=== PATIENT | female | born 1950 | race Asian ===

== ENCOUNTER → 2023-04-07 13:01 | Outpatient (REF) | payer MEDICARE, SELFPAY ==
[2023-04-07 11:25] LABS: % Immature Granulocytes 0.2 % (0-0.5); % Lymphocytes 23.5 % (20.5-51.1); % Monocytes 8.3 % (1.7-9.3); Absolute Basophils 0.1 10^3/uL (0-0.2); Absolute Eosinophils 0.2 10^3/uL (0-0.7); Absolute Lymphocytes 1.2 10^3/uL (1.2-3.4); Absolute Monocytes 0.4 10^3/uL (0.1-0.6); Absolute Neutrophils 3.1 10^3/uL (1.4-6.5); Hematocrit 37.6 % (37.0-47.0); Hemoglobin 12.6 g/dL (12.0-16.0); Mean Corp Hgb Conc. 33.5 g/dL (33.0-37.0); Mean Corpuscular Volume 74.6 fL (81.0-99.0); Mean Platelet Volume 11.6 fL (7.4-10.4); Platelet Count 241 10^3/uL (130-400); Red Blood Cell Count 5.04 10^6/uL (4.20-5.40); Red Cell Dist. Width 14.7 % (11.5-14.5); White Blood Cell Count 4.9 10^3/uL (4.8-10.8)
[2023-04-07 12:18] LABS: ALT (SGPT) 77 U/L (0-35); AST (SGOT) 71 U/L (14-36); Albumin 4.3 g/dl (3.5-5.0); Alkaline Phosphatase 55 U/L (38-126); Blood Urea Nitrogen 19 mg/dl (7-17); Calcium 9.2 mg/dl (8.4-10.2); Carbon Dioxide 27 mmol/L (22-30); Chloride 102 mmol/L (98-107); Glucose 219 mg/dl (70-99); Potassium 4.7 mmol/L (3.5-5.1); Sodium 134 mmol/L (135-145); Total Bilirubin 0.5 mg/dl (0.2-1.3); Total Protein 7.5 g/dl (6.3-8.2); eGFR > 60.00
== END ==
LOC: OIDL 13:01
PROVIDERS: ATTENDING PHYSICIAN Internal Medicine Hematology & Oncology
DX: C7A.010 Malignant carcinoid tumor of the duodenum (principal)
CPT/HCPCS: 80053; 85025

== ENCOUNTER → 2023-06-01 09:59 | Outpatient (REF) | payer MEDICARE, SELFPAY ==
[2023-06-01 10:21] LABS: % Basophils 0.8 % (0-2); % Eosinophils 2.3 % (0-6); % Lymphocytes 34.2 % (20.5-51.1); % Monocytes 8.9 % (1.7-9.3); % Neutrophils 53.8 % (42.2-75.2); Absolute Eosinophils 0.1 10^3/uL (0-0.7); Absolute Lymphocytes 1.7 10^3/uL (1.2-3.4); Absolute Monocytes 0.4 10^3/uL (0.1-0.6); Absolute Neutrophils 2.6 10^3/uL (1.4-6.5); Hematocrit 33.6 % (37.0-47.0); Hemoglobin 11.2 g/dL (12.0-16.0); Mean Corp Hgb Conc. 33.3 g/dL (33.0-37.0); Mean Corpuscular Hgb 25.1 pg (27.0-31.0); Mean Corpuscular Volume 75.3 fL (81.0-99.0); Mean Platelet Volume 11.8 fL (7.4-10.4); Platelet Count 219 10^3/uL (130-400); Red Blood Cell Count 4.46 10^6/uL (4.20-5.40); Red Cell Dist. Width 14.1 % (11.5-14.5); White Blood Cell Count 4.8 10^3/uL (4.8-10.8)
[2023-06-01 11:05] LABS: ALT (SGPT) 102 U/L (0-35); AST (SGOT) 93 U/L (14-36); Albumin 3.9 g/dl (3.5-5.0); Alkaline Phosphatase 51 U/L (38-126); Blood Urea Nitrogen 22 mg/dl (7-17); Calcium 9.1 mg/dl (8.4-10.2); Carbon Dioxide 22 mmol/L (22-30); Chloride 106 mmol/L (98-107); Glucose 258 mg/dl (70-99); Potassium 3.9 mmol/L (3.5-5.1); Sodium 135 mmol/L (135-145); Total Bilirubin 0.3 mg/dl (0.2-1.3); Total Protein 6.8 g/dl (6.3-8.2); eGFR > 60.00
== END ==
LOC: OIDL 09:59
PROVIDERS: ATTENDING PHYSICIAN Internal Medicine Hematology & Oncology
DX: C7A.010 Malignant carcinoid tumor of the duodenum (principal)
CPT/HCPCS: 80053; 85025

== ENCOUNTER → 2023-06-28 07:10 | Outpatient (REF) | payer MEDICARE, SELFPAY | LOC: HWRAD 07:10 | PROVIDERS: ATTENDING PHYSICIAN Internal Medicine Hematology & Oncology; FAMILY PHYSICIAN Internal Medicine | DX: C7A.010 Malignant carcinoid tumor of the duodenum (principal) | CPT/HCPCS: 76700 ==

== ENCOUNTER → 2023-06-30 14:17 | Outpatient (REF) | payer MEDICARE, SELFPAY ==
[2023-06-30 13:06] LABS: % Basophils 0.7 % (0-2); % Eosinophils 2.8 % (0-6); % Immature Granulocytes 0.7 % (0-0.5); % Lymphocytes 35.1 % (20.5-51.1); % Monocytes 9.6 % (1.7-9.3); % Neutrophils 51.1 % (42.2-75.2); Absolute Eosinophils 0.1 10^3/uL (0-0.7); Absolute Lymphocytes 1.5 10^3/uL (1.2-3.4); Absolute Monocytes 0.4 10^3/uL (0.1-0.6); Absolute Neutrophils 2.2 10^3/uL (1.4-6.5); Hematocrit 34.4 % (37.0-47.0); Hemoglobin 11.7 g/dL (12.0-16.0); Mean Corpuscular Hgb 25.3 pg (27.0-31.0); Mean Corpuscular Volume 74.3 fL (81.0-99.0); Mean Platelet Volume 11.4 fL (7.4-10.4); Platelet Count 208 10^3/uL (130-400); Red Blood Cell Count 4.63 10^6/uL (4.20-5.40); White Blood Cell Count 4.3 10^3/uL (4.8-10.8)
[2023-06-30 15:02] LABS: ALT (SGPT) 83 U/L (0-35); AST (SGOT) 79 U/L (14-36); Alkaline Phosphatase 55 U/L (38-126); Blood Urea Nitrogen 17 mg/dl (7-17); Calcium 9.1 mg/dl (8.4-10.2); Carbon Dioxide 23 mmol/L (22-30); Chloride 105 mmol/L (98-107); Glucose 269 mg/dl (70-99); Potassium 4.5 mmol/L (3.5-5.1); Sodium 133 mmol/L (135-145); Total Bilirubin 0.3 mg/dl (0.2-1.3); eGFR > 60.00
== END ==
LOC: OIDL 14:17
PROVIDERS: ATTENDING PHYSICIAN Internal Medicine Hematology & Oncology
DX: C7A.010 Malignant carcinoid tumor of the duodenum (principal)
CPT/HCPCS: 80053; 85025

== ENCOUNTER → 2023-08-04 09:58 | Outpatient (REF) | payer MEDICARE, SELFPAY ==
[2023-08-04 09:46] LABS: % Basophils 0.7 % (0-2); % Eosinophils 1.5 % (0-6); % Immature Granulocytes 0.2 % (0-0.5); % Lymphocytes 32.7 % (20.5-51.1); % Monocytes 10.9 % (1.7-9.3); Absolute Eosinophils 0.1 10^3/uL (0-0.7); Absolute Lymphocytes 1.9 10^3/uL (1.2-3.4); Absolute Monocytes 0.6 10^3/uL (0.1-0.6); Absolute Neutrophils 3.2 10^3/uL (1.4-6.5); Hematocrit 34.2 % (37.0-47.0); Hemoglobin 11.5 g/dL (12.0-16.0); Mean Corp Hgb Conc. 33.6 g/dL (33.0-37.0); Mean Corpuscular Hgb 25.3 pg (27.0-31.0); Mean Corpuscular Volume 75.3 fL (81.0-99.0); Mean Platelet Volume 10.8 fL (7.4-10.4); Platelet Count 240 10^3/uL (130-400); Red Blood Cell Count 4.54 10^6/uL (4.20-5.40); Red Cell Dist. Width 14.3 % (11.5-14.5); White Blood Cell Count 5.9 10^3/uL (4.8-10.8)
[2023-08-04 10:10] LABS: ALT (SGPT) 79 U/L (0-35); AST (SGOT) 67 U/L (14-36); Albumin 4.1 g/dl (3.5-5.0); Alkaline Phosphatase 49 U/L (38-126); Blood Urea Nitrogen 21 mg/dl (7-17); Calcium 9.3 mg/dl (8.4-10.2); Carbon Dioxide 25 mmol/L (22-30); Chloride 105 mmol/L (98-107); Glucose 226 mg/dl (70-99); Potassium 4.3 mmol/L (3.5-5.1); Sodium 140 mmol/L (135-145); Total Bilirubin 0.3 mg/dl (0.2-1.3); Total Protein 7.1 g/dl (6.3-8.2); eGFR > 60.00
== END ==
LOC: OIDL 09:58
PROVIDERS: ATTENDING PHYSICIAN Internal Medicine Hematology & Oncology
DX: C7A.010 Malignant carcinoid tumor of the duodenum (principal)
CPT/HCPCS: 80053; 85025

== ENCOUNTER → 2023-09-02 14:30 | Outpatient (REF) | payer MEDICARE, SELFPAY ==
[2023-09-02 10:07] LABS: % Basophils 1.1 % (0-2); % Eosinophils 2.1 % (0-6); % Immature Granulocytes 0.2 % (0-0.5); % Lymphocytes 40.8 % (20.5-51.1); % Monocytes 9.7 % (1.7-9.3); % Neutrophils 46.1 % (42.2-75.2); Absolute Basophils 0.1 10^3/uL (0-0.2); Absolute Eosinophils 0.1 10^3/uL (0-0.7); Absolute Lymphocytes 1.9 10^3/uL (1.2-3.4); Absolute Monocytes 0.5 10^3/uL (0.1-0.6); Absolute Neutrophils 2.2 10^3/uL (1.4-6.5); Hematocrit 34.2 % (37.0-47.0); Mean Corp Hgb Conc. 32.2 g/dL (33.0-37.0); Mean Corpuscular Hgb 24.2 pg (27.0-31.0); Mean Corpuscular Volume 75.3 fL (81.0-99.0); Mean Platelet Volume 11.5 fL (7.4-10.4); Nucleated Red Blood Cells % 0 %; Platelet Count 218 10^3/uL (130-400); Red Blood Cell Count 4.54 10^6/uL (4.20-5.40); Red Cell Dist. Width 14.1 % (11.5-14.5); White Blood Cell Count 4.8 10^3/uL (4.8-10.8)
[2023-09-02 10:35] LABS: ALT (SGPT) 66 U/L (0-35); AST (SGOT) 68 U/L (14-36); Albumin 4.3 g/dl (3.5-5.0); Alkaline Phosphatase 47 U/L (38-126); Blood Urea Nitrogen 20 mg/dl (7-17); Calcium 9.4 mg/dl (8.4-10.2); Carbon Dioxide 24 mmol/L (22-30); Chloride 105 mmol/L (98-107); Glucose 157 mg/dl (70-99); Potassium 3.9 mmol/L (3.5-5.1); Sodium 138 mmol/L (135-145); Total Bilirubin 0.4 mg/dl (0.2-1.3); Total Protein 6.9 g/dl (6.3-8.2); eGFR > 60.00
== END ==
LOC: OIDL 14:30
PROVIDERS: ATTENDING PHYSICIAN Internal Medicine Hematology & Oncology
DX: C7A.010 Malignant carcinoid tumor of the duodenum (principal)
CPT/HCPCS: 80053; 85025

== ENCOUNTER → 2023-09-29 14:59 | Outpatient (REF) | payer MEDICARE, SELFPAY ==
[2023-09-29 09:38] LABS: % Basophils 0.8 % (0-2); % Eosinophils 2.9 % (0-6); % Lymphocytes 33.1 % (20.5-51.1); % Monocytes 9.7 % (1.7-9.3); % Neutrophils 53.5 % (42.2-75.2); Absolute Eosinophils 0.1 10^3/uL (0-0.7); Absolute Lymphocytes 1.6 10^3/uL (1.2-3.4); Absolute Monocytes 0.5 10^3/uL (0.1-0.6); Absolute Neutrophils 2.6 10^3/uL (1.4-6.5); Hematocrit 34.1 % (37.0-47.0); Hemoglobin 11.5 g/dL (12.0-16.0); Mean Corp Hgb Conc. 33.7 g/dL (33.0-37.0); Mean Corpuscular Hgb 25.2 pg (27.0-31.0); Mean Corpuscular Volume 74.8 fL (81.0-99.0); Mean Platelet Volume 10.9 fL (7.4-10.4); Platelet Count 231 10^3/uL (130-400); Red Blood Cell Count 4.56 10^6/uL (4.20-5.40); Red Cell Dist. Width 14.1 % (11.5-14.5); White Blood Cell Count 4.8 10^3/uL (4.8-10.8)
[2023-09-29 11:44] LABS: ALT (SGPT) 124 U/L (0-35); AST (SGOT) 96 U/L (14-36); Albumin 4.3 g/dl (3.5-5.0); Alkaline Phosphatase 50 U/L (38-126); Blood Urea Nitrogen 16 mg/dl (7-17); Calcium 9.5 mg/dl (8.4-10.2); Carbon Dioxide 24 mmol/L (22-30); Chloride 105 mmol/L (98-107); Glucose 289 mg/dl (70-99); Sodium 137 mmol/L (135-145); Total Bilirubin 0.3 mg/dl (0.2-1.3); eGFR > 60.00
== END ==
LOC: OIDL 14:59
PROVIDERS: ATTENDING PHYSICIAN Internal Medicine Hematology & Oncology
DX: C7A.010 Malignant carcinoid tumor of the duodenum (principal)
CPT/HCPCS: 80053; 85025

== ENCOUNTER → 2023-10-27 10:00 | Outpatient (REF) | payer MEDICARE, SELFPAY ==
[2023-10-27 10:28] LABS: % Basophils 0.9 % (0-2); % Eosinophils 2.2 % (0-6); % Immature Granulocytes 0.4 % (0-0.5); % Monocytes 10.3 % (1.7-9.3); % Neutrophils 48.2 % (42.2-75.2); Absolute Basophils 0.1 10^3/uL (0-0.2); Absolute Eosinophils 0.1 10^3/uL (0-0.7); Absolute Lymphocytes 2.1 10^3/uL (1.2-3.4); Absolute Monocytes 0.6 10^3/uL (0.1-0.6); Absolute Neutrophils 2.7 10^3/uL (1.4-6.5); Hemoglobin 10.9 g/dL (12.0-16.0); Mean Corp Hgb Conc. 34.1 g/dL (33.0-37.0); Mean Corpuscular Hgb 24.9 pg (27.0-31.0); Mean Corpuscular Volume 73.2 fL (81.0-99.0); Mean Platelet Volume 11.4 fL (7.4-10.4); Nucleated Red Blood Cells % 0 %; Platelet Count 220 10^3/uL (130-400); Red Blood Cell Count 4.37 10^6/uL (4.20-5.40); Red Cell Dist. Width 14.2 % (11.5-14.5); White Blood Cell Count 5.5 10^3/uL (4.8-10.8)
[2023-10-27 10:38] LABS: ALT (SGPT) 66 U/L (0-35); AST (SGOT) 64 U/L (14-36); Albumin 4.4 g/dl (3.5-5.0); Alkaline Phosphatase 50 U/L (38-126); Blood Urea Nitrogen 21 mg/dl (7-17); Calcium 9.7 mg/dl (8.4-10.2); Carbon Dioxide 24 mmol/L (22-30); Chloride 106 mmol/L (98-107); Glucose 116 mg/dl (70-99); Potassium 4.1 mmol/L (3.5-5.1); Sodium 142 mmol/L (135-145); Total Bilirubin 0.4 mg/dl (0.2-1.3); Total Protein 7.1 g/dl (6.3-8.2); eGFR > 60.00
== END ==
LOC: OIDL 10:00
PROVIDERS: ATTENDING PHYSICIAN Internal Medicine Hematology & Oncology
DX: C7A.010 Malignant carcinoid tumor of the duodenum (principal)
CPT/HCPCS: 80053; 85025

== ENCOUNTER → 2023-11-24 09:25 | Outpatient (REF) | payer MEDICARE, SELFPAY ==
[2023-11-24 09:31] LABS: % Basophils 0.6 % (0-2); % Eosinophils 1.9 % (0-6); % Immature Granulocytes 0.2 % (0-0.5); % Lymphocytes 39.9 % (20.5-51.1); % Monocytes 8.1 % (1.7-9.3); % Neutrophils 49.3 % (42.2-75.2); Absolute Eosinophils 0.1 10^3/uL (0-0.7); Absolute Lymphocytes 1.9 10^3/uL (1.2-3.4); Absolute Monocytes 0.4 10^3/uL (0.1-0.6); Absolute Neutrophils 2.3 10^3/uL (1.4-6.5); Hematocrit 34.1 % (37.0-47.0); Hemoglobin 11.3 g/dL (12.0-16.0); Mean Corp Hgb Conc. 33.1 g/dL (33.0-37.0); Mean Corpuscular Volume 75.4 fL (81.0-99.0); Mean Platelet Volume 10.7 fL (7.4-10.4); Platelet Count 227 10^3/uL (130-400); Red Blood Cell Count 4.52 10^6/uL (4.20-5.40); Red Cell Dist. Width 14.3 % (11.5-14.5); White Blood Cell Count 4.7 10^3/uL (4.8-10.8)
[2023-11-24 10:14] LABS: ALT (SGPT) 71 U/L (0-35); AST (SGOT) 55 U/L (14-36); Albumin 4.4 g/dl (3.5-5.0); Alkaline Phosphatase 54 U/L (38-126); Blood Urea Nitrogen 19 mg/dl (7-17); Calcium 9.3 mg/dl (8.4-10.2); Carbon Dioxide 25 mmol/L (22-30); Chloride 104 mmol/L (98-107); Glucose 204 mg/dl (70-99); Sodium 141 mmol/L (135-145); Total Bilirubin 0.4 mg/dl (0.2-1.3); Total Protein 7.3 g/dl (6.3-8.2); eGFR > 60.00
== END ==
LOC: OIDL 09:25
PROVIDERS: ATTENDING PHYSICIAN Internal Medicine Hematology & Oncology
DX: C7A.010 Malignant carcinoid tumor of the duodenum (principal)
CPT/HCPCS: 80053; 85025

== ENCOUNTER → 2023-12-30 11:31 | Outpatient (REF) | payer MEDICARE, SELFPAY ==
[2023-12-30 10:05] LABS: % Basophils 0.8 % (0-2); % Eosinophils 1.7 % (0-6); % Immature Granulocytes 0.2 % (0-0.5); % Lymphocytes 37.3 % (20.5-51.1); % Monocytes 10.3 % (1.7-9.3); % Neutrophils 49.7 % (42.2-75.2); Absolute Eosinophils 0.1 10^3/uL (0-0.7); Absolute Lymphocytes 1.9 10^3/uL (1.2-3.4); Absolute Monocytes 0.5 10^3/uL (0.1-0.6); Absolute Neutrophils 2.6 10^3/uL (1.4-6.5); Hematocrit 32.4 % (37.0-47.0); Hemoglobin 10.6 g/dL (12.0-16.0); Mean Corp Hgb Conc. 32.7 g/dL (33.0-37.0); Mean Corpuscular Hgb 24.7 pg (27.0-31.0); Mean Corpuscular Volume 75.3 fL (81.0-99.0); Mean Platelet Volume 11.9 fL (7.4-10.4); Nucleated Red Blood Cells % 0 %; Platelet Count 240 10^3/uL (130-400); Red Cell Dist. Width 14.6 % (11.5-14.5); White Blood Cell Count 5.2 10^3/uL (4.8-10.8)
[2024-01-01 19:37] LABS: Chromogranin A 38 ng/mL (0-187)
== END ==
LOC: OIDL 11:31
PROVIDERS: ATTENDING PHYSICIAN Internal Medicine Hematology & Oncology
DX: C7A.010 Malignant carcinoid tumor of the duodenum (principal)
CPT/HCPCS: 85025; 86316

== ENCOUNTER → 2024-03-12 16:09 | Outpatient (REF) | payer MEDICARE, SELFPAY ==
[2024-03-12 10:27] LABS: % Basophils 0.7 % (0-2); % Eosinophils 1.5 % (0-6); % Immature Granulocytes 0.3 % (0-0.5); % Lymphocytes 33.1 % (20.5-51.1); % Monocytes 8.1 % (1.7-9.3); % Neutrophils 56.3 % (42.2-75.2); Absolute Eosinophils 0.1 10^3/uL (0-0.7); Absolute Monocytes 0.5 10^3/uL (0.1-0.6); Absolute Neutrophils 3.4 10^3/uL (1.4-6.5); Hemoglobin 10.9 g/dL (12.0-16.0); Mean Corp Hgb Conc. 32.1 g/dL (33.0-37.0); Mean Corpuscular Hgb 25.5 pg (27.0-31.0); Mean Corpuscular Volume 79.6 fL (81.0-99.0); Platelet Count 237 10^3/uL (130-400); Red Blood Cell Count 4.27 10^6/uL (4.20-5.40); Red Cell Dist. Width 14.6 % (11.5-14.5)
[2024-03-12 11:35] LABS: ALT (SGPT) 55 U/L (0-35); AST (SGOT) 51 U/L (14-36); Albumin 4.3 g/dl (3.5-5.0); Alkaline Phosphatase 57 U/L (38-126); Blood Urea Nitrogen 20 mg/dl (7-17); Calcium 8.8 mg/dl (8.4-10.2); Carbon Dioxide 20 mmol/L (22-30); Chloride 102 mmol/L (98-107); Glucose 316 mg/dl (70-99); Potassium 4.3 mmol/L (3.5-5.1); Sodium 136 mmol/L (135-145); Total Bilirubin 0.6 mg/dl (0.2-1.3); Total Protein 7.2 g/dl (6.3-8.2); eGFR > 60.00
== END ==
LOC: OIDL 16:09
PROVIDERS: ATTENDING PHYSICIAN Internal Medicine Hematology & Oncology
DX: C7A.010 Malignant carcinoid tumor of the duodenum (principal)
CPT/HCPCS: 80053; 85025

== ENCOUNTER → 2024-04-10 10:14 | Outpatient (REF) | payer MEDICARE, OTHER, SELFPAY ==
[2024-04-10 10:36] LABS: % Basophils 0.6 % (0-2); % Eosinophils 1.7 % (0-6); % Immature Granulocytes 0.2 % (0-0.5); % Lymphocytes 25.6 % (20.5-51.1); % Monocytes 7.9 % (1.7-9.3); Absolute Eosinophils 0.1 10^3/uL (0-0.7); Absolute Lymphocytes 1.4 10^3/uL (1.2-3.4); Absolute Monocytes 0.4 10^3/uL (0.1-0.6); Absolute Neutrophils 3.4 10^3/uL (1.4-6.5); Hematocrit 34.9 % (37.0-47.0); Hemoglobin 11.4 g/dL (12.0-16.0); Mean Corp Hgb Conc. 32.7 g/dL (33.0-37.0); Mean Corpuscular Hgb 25.3 pg (27.0-31.0); Mean Corpuscular Volume 77.4 fL (81.0-99.0); Mean Platelet Volume 10.4 fL (7.4-10.4); Platelet Count 237 10^3/uL (130-400); Red Blood Cell Count 4.51 10^6/uL (4.20-5.40); White Blood Cell Count 5.3 10^3/uL (4.8-10.8)
[2024-04-10 11:46] LABS: ALT (SGPT) 67 U/L (0-35); AST (SGOT) 53 U/L (14-36); Albumin 4.3 g/dl (3.5-5.0); Alkaline Phosphatase 54 U/L (38-126); Blood Urea Nitrogen 21 mg/dl (7-17); Calcium 9.3 mg/dl (8.4-10.2); Carbon Dioxide 24 mmol/L (22-30); Chloride 105 mmol/L (98-107); Glucose 231 mg/dl (70-99); Potassium 4.4 mmol/L (3.5-5.1); Sodium 138 mmol/L (135-145); Total Bilirubin 0.5 mg/dl (0.2-1.3); Total Protein 7.4 g/dl (6.3-8.2); eGFR > 60.00
[2024-04-11 15:58] LABS: Chromogranin A 40 ng/mL (0-187)
== END ==
LOC: OIDL 10:14
PROVIDERS: ATTENDING PHYSICIAN Nurse Practitioner Adult Health
DX: C7A.010 Malignant carcinoid tumor of the duodenum (principal)
CPT/HCPCS: 36415; 80053; 85025; 86316

== ENCOUNTER → 2024-05-08 09:34 | Outpatient (REF) | payer MEDICARE, OTHER, SELFPAY ==
[2024-05-08 09:51] LABS: % Basophils 0.4 % (0-2); % Eosinophils 2.8 % (0-6); % Immature Granulocytes 0.1 % (0-0.5); % Lymphocytes 34.7 % (20.5-51.1); Absolute Eosinophils 0.2 10^3/uL (0-0.7); Absolute Lymphocytes 2.3 10^3/uL (1.2-3.4); Absolute Monocytes 0.7 10^3/uL (0.1-0.6); Absolute Neutrophils 3.5 10^3/uL (1.4-6.5); Hematocrit 34.4 % (37.0-47.0); Hemoglobin 11.5 g/dL (12.0-16.0); Mean Corp Hgb Conc. 33.4 g/dL (33.0-37.0); Mean Corpuscular Hgb 25.4 pg (27.0-31.0); Mean Corpuscular Volume 76.1 fL (81.0-99.0); Mean Platelet Volume 10.9 fL (7.4-10.4); Platelet Count 216 10^3/uL (130-400); Red Blood Cell Count 4.52 10^6/uL (4.20-5.40); Red Cell Dist. Width 12.6 % (11.5-14.5); White Blood Cell Count 6.7 10^3/uL (4.8-10.8)
[2024-05-08 10:24] LABS: ALT (SGPT) 48 U/L (0-35); AST (SGOT) 38 U/L (14-36); Albumin 4.4 g/dl (3.5-5.0); Alkaline Phosphatase 58 U/L (38-126); Blood Urea Nitrogen 26 mg/dl (7-17); Calcium 9.7 mg/dl (8.4-10.2); Carbon Dioxide 24 mmol/L (22-30); Chloride 101 mmol/L (98-107); Glucose 248 mg/dl (70-99); Sodium 137 mmol/L (135-145); Total Bilirubin 0.8 mg/dl (0.2-1.3); Total Protein 7.2 g/dl (6.3-8.2); eGFR > 60.00
[2024-05-09 18:24] LABS: Chromogranin A 126 ng/mL (0-187)
== END ==
LOC: OIDL 09:34
PROVIDERS: Internal Medicine Hematology & Oncology; ATTENDING PHYSICIAN Nurse Practitioner Adult Health
DX: C7A.010 Malignant carcinoid tumor of the duodenum (principal)
CPT/HCPCS: 80053; 85025; 86316

== ENCOUNTER → 2024-06-07 08:27 | Outpatient (REF) | payer MEDICARE, SELFPAY ==
[2024-06-07 08:50] LABS: % Basophils 0.7 % (0-2); % Eosinophils 2.2 % (0-6); % Immature Granulocytes 0.2 % (0-0.5); % Lymphocytes 32.9 % (20.5-51.1); % Monocytes 10.4 % (1.7-9.3); % Neutrophils 53.6 % (42.2-75.2); Absolute Eosinophils 0.1 10^3/uL (0-0.7); Absolute Lymphocytes 1.8 10^3/uL (1.2-3.4); Absolute Monocytes 0.6 10^3/uL (0.1-0.6); Hematocrit 33.4 % (37.0-47.0); Mean Corp Hgb Conc. 32.9 g/dL (33.0-37.0); Mean Corpuscular Hgb 24.7 pg (27.0-31.0); Mean Corpuscular Volume 75.1 fL (81.0-99.0); Mean Platelet Volume 10.7 fL (7.4-10.4); Platelet Count 222 10^3/uL (130-400); Red Blood Cell Count 4.45 10^6/uL (4.20-5.40); Red Cell Dist. Width 13.7 % (11.5-14.5); White Blood Cell Count 5.6 10^3/uL (4.8-10.8)
[2024-06-07 09:26] LABS: ALT (SGPT) 54 U/L (0-35); AST (SGOT) 41 U/L (14-36); Alkaline Phosphatase 52 U/L (38-126); Blood Urea Nitrogen 22 mg/dl (7-17); Calcium 9.3 mg/dl (8.4-10.2); Carbon Dioxide 23 mmol/L (22-30); Chloride 105 mmol/L (98-107); Glucose 295 mg/dl (70-99); Potassium 4.1 mmol/L (3.5-5.1); Sodium 138 mmol/L (135-145); Total Bilirubin 0.5 mg/dl (0.2-1.3); Total Protein 6.9 g/dl (6.3-8.2); eGFR > 60.00
== END ==
LOC: OIDL 08:27
PROVIDERS: Internal Medicine Hematology & Oncology; ATTENDING PHYSICIAN Nurse Practitioner Adult Health
DX: C7A.010 Malignant carcinoid tumor of the duodenum (principal)
CPT/HCPCS: 36415; 80053; 85025

== ENCOUNTER → 2024-07-05 16:13 | Outpatient (REF) | payer MEDICARE, OTHER, SELFPAY ==
[2024-07-05 09:50] LABS: % Basophils 0.7 % (0-2); % Eosinophils 1.7 % (0-6); % Immature Granulocytes 0.3 % (0-0.5); % Lymphocytes 30.8 % (20.5-51.1); % Monocytes 10.9 % (1.7-9.3); % Neutrophils 55.6 % (42.2-75.2); Absolute Eosinophils 0.1 10^3/uL (0-0.7); Absolute Lymphocytes 1.8 10^3/uL (1.2-3.4); Absolute Monocytes 0.6 10^3/uL (0.1-0.6); Absolute Neutrophils 3.3 10^3/uL (1.4-6.5); Hematocrit 34.3 % (37.0-47.0); Hemoglobin 11.4 g/dL (12.0-16.0); Mean Corp Hgb Conc. 33.2 g/dL (33.0-37.0); Mean Corpuscular Hgb 25.1 pg (27.0-31.0); Mean Corpuscular Volume 75.4 fL (81.0-99.0); Mean Platelet Volume 10.8 fL (7.4-10.4); Platelet Count 252 10^3/uL (130-400); Red Blood Cell Count 4.55 10^6/uL (4.20-5.40); Red Cell Dist. Width 14.7 % (11.5-14.5); White Blood Cell Count 5.9 10^3/uL (4.8-10.8)
[2024-07-05 10:37] LABS: ALT (SGPT) 60 U/L (0-35); AST (SGOT) 44 U/L (14-36); Alkaline Phosphatase 41 U/L (38-126); Blood Urea Nitrogen 18 mg/dl (7-17); Calcium 9.6 mg/dl (8.4-10.2); Carbon Dioxide 26 mmol/L (22-30); Chloride 104 mmol/L (98-107); Glucose 167 mg/dl (70-99); Sodium 138 mmol/L (135-145); Total Bilirubin 0.5 mg/dl (0.2-1.3); eGFR > 60.00
[2024-07-07 12:53] LABS: Chromogranin A 41 ng/mL (0-187)
== END ==
LOC: OIDL 16:13
PROVIDERS: ATTENDING PHYSICIAN Internal Medicine Hematology & Oncology
DX: C7A.010 Malignant carcinoid tumor of the duodenum (principal)
CPT/HCPCS: 80053; 85025; 86316

== ENCOUNTER → 2024-07-11 19:01 | Outpatient (REF) | payer MEDICARE, OTHER, SELFPAY | LOC: WDC 19:01 | PROVIDERS: ATTENDING PHYSICIAN Internal Medicine Hematology & Oncology; FAMILY PHYSICIAN Internal Medicine | DX: Z12.31 Encounter for screening mammogram for malignant neoplasm of breast (principal) | CPT/HCPCS: 77063; 77067 ==

== ENCOUNTER → 2024-09-06 16:11 | Outpatient (REF) | payer MEDICARE, OTHER, SELFPAY ==
[2024-09-06 10:15] LABS: Hematocrit 32.8 % (37.0-47.0); Hemoglobin 11.0 g/dL (12.0-16.0); Mean Corp Hgb Conc. 33.5 g/dL (33.0-37.0); Mean Corpuscular Volume 74.0 fL (81.0-99.0); Nucleated Red Blood Cells % 0 %; Platelet Count 239 10^3/uL (130-400); Red Cell Dist. Width 13.9 % (11.5-14.5)
[2024-09-06 10:32] LABS: ALT (SGPT) 43 U/L (0-35); AST (SGOT) 37 U/L (14-36); Albumin 4.1 g/dl (3.5-5.0); Alkaline Phosphatase 47 U/L (38-126); Blood Urea Nitrogen 16 mg/dl (7-17); Calcium 9.0 mg/dl (8.4-10.2); Carbon Dioxide 22 mmol/L (22-30); Chloride 105 mmol/L (98-107); Glucose 265 mg/dl (70-99); Potassium 4.4 mmol/L (3.5-5.1); Sodium 135 mmol/L (135-145); Total Protein 7.0 g/dl (6.3-8.2); eGFR > 60.00
== END ==
LOC: OIDL 16:11
PROVIDERS: ATTENDING PHYSICIAN Registered Nurse
DX: C7A.010 Malignant carcinoid tumor of the duodenum (principal)
CPT/HCPCS: 80053; 85025; 86316

== ENCOUNTER → 2024-10-04 09:06 | Outpatient (REF) | payer MEDICARE, OTHER, SELFPAY ==
[2024-10-04 09:11] LABS: Hematocrit 35.2 % (37.0-47.0); Hemoglobin 11.5 g/dL (12.0-16.0); Mean Corp Hgb Conc. 32.7 g/dL (33.0-37.0); Mean Corpuscular Volume 76.9 fL (81.0-99.0); Platelet Count 255 10^3/uL (130-400); Red Cell Dist. Width 14.4 % (11.5-14.5)
[2024-10-04 10:07] LABS: ALT (SGPT) 63 U/L (0-35); AST (SGOT) 58 U/L (14-36); Albumin 4.5 g/dl (3.5-5.0); Alkaline Phosphatase 45 U/L (38-126); Blood Urea Nitrogen 20 mg/dl (7-17); Calcium 9.4 mg/dl (8.4-10.2); Carbon Dioxide 24 mmol/L (22-30); Chloride 105 mmol/L (98-107); Glucose 298 mg/dl (70-99); Potassium 4.4 mmol/L (3.5-5.1); Sodium 138 mmol/L (135-145); Total Protein 7.8 g/dl (6.3-8.2); eGFR > 60.00
== END ==
LOC: OIDL 09:06
PROVIDERS: ATTENDING PHYSICIAN Nurse Practitioner Adult Health
DX: C7A.010 Malignant carcinoid tumor of the duodenum (principal)
CPT/HCPCS: 80053; 85025; 86316

== ENCOUNTER 2025-02-12 13:09 | Emergency (ER) | payer MEDICARE, OTHER, SELFPAY ==
[2025-02-12] VITALS (12 sets, daily range): BP systolic 108–143; BP diastolic 53–65; PULSE 87–97
[2025-02-12 13:26] LABS: Glucose - Point of Care 152 mg/dl (70-99)
[2025-02-12 13:44] LABS: Hematocrit 33.1 % (37.0-47.0); Hemoglobin 10.8 g/dL (12.0-16.0); Mean Corp Hgb Conc. 32.6 g/dL (33.0-37.0); Mean Corpuscular Volume 77.2 fL (81.0-99.0); Nucleated Red Blood Cells % 0 %; Platelet Count 201 10^3/uL (130-400); Red Cell Dist. Width 14.0 % (11.5-14.5)
[2025-02-12 13:48] LABS: Blood Urea Nitrogen 20 mg/dl (7-17); Calcium 9.2 mg/dl (8.4-10.2); Carbon Dioxide 22 mmol/L (22-30); Chloride 106 mmol/L (98-107); Estimated Creatinine Clearance 54 ml/min; Glucose 154 mg/dl (70-99); Sodium 137 mmol/L (135-145); eGFR > 60.00
--- NOTE | 2025-02-12 14:20 | ED.GENMED ---
History of Present Illness
<LEAH Ryan - Last Filed: 02/12/25 16:43>
General
Chief Complaint: Fainting/Passed Out
Source: patient
Exam Limitations: none
Time Seen by Provider: 02/12/25 13:44
Nursing documentation reviewed up to this point in time: agreed with
History of Present Illness
History of Present Illness:
Patient is a 74-year-old female with diabetes hypertension hyperlipidemia neuroendocrine tumor followed by oncology here at [facility] presents to the ER for evaluation. Patient apparently had 2 syncopal episodes today. 1 patient was walking to
the bathroom on her own and apparently woke up on the floor but did not tell the daughter at that time. The second episode happened around 11 AM patient was sitting in her bed slumped over and passed out for about 3 to 5 minutes. Daughter called
EMS. Patient was complaining of some epigastric pain at that time. Daughter also reports that patient wanted to use the bathroom to have a bowel movement at the time but the daughter did not let her go because she was not feeling well. Patient
has no symptoms here.
Past History
<LEAH Ryan - Last Filed: 02/12/25 16:43>
Past History
ED Past Medical History: GERD, HTN, Hypercholesterolemia and IDDM
Social History
Tobacco: Non-smoker
Alcohol: None
Drug: None
Living: with family
Phy Exam
<LEAH Ryan - Last Filed: 02/12/25 16:43>
General Physical Exam
General Presentation: no apparent distress
General age: appears stated age
General Skin: warm and dry
General Habitus: normal
General Mental: alert
General Hydration: appears well hydrated
Cardiovascular Exam
Cardiovascular Exam: regular rate/rhythm, no murmur and normal peripheral pulses
Pulmonary Exam
Pulmonary Exam: lungs clear and no respiratory distress
Gastrointestinal Exam
Gastrointestinal Exam: non tender and soft
Neurological Exam
Neurological Exam: alert and oriented x3
Musculoskeletal Exam
Musculoskeletal Exam: full ROM
Skin Exam
Skin Exam: normal color and warm/dry
Psychiatric Exam
Psychiatric Exam: normal mood/affect
Course
<LEAH Ryan - Last Filed: 02/12/25 16:43>
Orders/Labs/Results
Orders:
Orders
02/12/25 13:15
EKG [Electrocardiogram (*1)] Urgent
Reason for Study: Tachycardia
EKG- Treatment ONCE
02/12/25 13:26
Basic Metabolic Panel Urgent
Complete Blood Count/With Diff Urgent
02/12/25 14:52
Orthostatic VS- Treatment ONCE
0.9% Sodium Chloride 1000 ml [Nss] 1,000 ml IV BOLUS
02/12/25 14:54
Troponin I Urgent
02/12/25 15:17
CT Head W/o Iv Contrast Urgent
Comment:
Reason For Exam: syncope
02/12/25 15:26
Potassium Urgent
02/12/25 16:22
EKG- Treatment ONCE
02/12/25 16:36
UA Reflex to Culture [Urinalysis Reflex To Culture] Urgent
Date Specimen was Collected: 02/12/25
Time Specimen was Collected: 16:26
02/12/25 18:00
Electrocardiogram (*1) Urgent
Reason for Study: Chest Pain
02/12/25 18:06
Troponin I Urgent
Abnormal Lab Results
02/12/25 02/12/25
13:25 13:26
Hgb 10.8 L g/dL
(12.0-16.0)
Hct 33.1 L %
(37.0-47.0)
MCV 77.2 L fL
(81.0-99.0)
MCH 25.2 L pg
(27.0-31.0)
MCHC 32.6 L g/dL
(33.0-37.0)
MPV 12.9 H fL
(7.4-10.4)
BUN 20 H mg/dl
(7-17)
Glucose 154 H mg/dl
(70-99)
POC Glucose 152 H mg/dl
(70-99)
02/12/25 13:26
02/12/25 15:26
Vital Signs
Initial and Last Documented VS:
Initial Vital Signs
Temp Pulse Resp BP Pulse Ox
36.5 C 88 20 124/53 98
02/12/25 13:19 02/12/25 13:19 02/12/25 13:19 02/12/25 13:19 02/12/25 13:19
Last Documented Vital Signs
Temp Pulse Resp BP Pulse Ox
36.5 C 91 18 122/61 96
02/12/25 13:19 02/12/25 19:45 02/12/25 20:15 02/12/25 19:00 02/12/25 19:45
<Shayla Ding, DO - Last Filed: 02/12/25 15:47>
Orders/Labs/Results
Orders:
Orders
02/12/25 13:15
EKG [Electrocardiogram (*1)] Urgent
Reason for Study: Tachycardia
EKG- Treatment ONCE
02/12/25 13:26
Basic Metabolic Panel Urgent
Complete Blood Count/With Diff Urgent
02/12/25 14:52
Orthostatic VS- Treatment ONCE
0.9% Sodium Chloride 1000 ml [Nss] 1,000 ml IV BOLUS
02/12/25 14:54
Troponin I Urgent
02/12/25 15:17
CT Head W/o Iv Contrast Urgent
Comment:
Reason For Exam: syncope
02/12/25 15:26
Potassium Urgent
02/12/25 16:22
EKG- Treatment ONCE
02/12/25 16:36
UA Reflex to Culture [Urinalysis Reflex To Culture] Urgent
Date Specimen was Collected: 02/12/25
Time Specimen was Collected: 16:26
02/12/25 18:00
Electrocardiogram (*1) Urgent
Reason for Study: Chest Pain
02/12/25 18:06
Troponin I Urgent
Abnormal Lab Results
02/12/25 02/12/25
13:25 13:26
Hgb 10.8 L g/dL
(12.0-16.0)
Hct 33.1 L %
(37.0-47.0)
MCV 77.2 L fL
(81.0-99.0)
MCH 25.2 L pg
(27.0-31.0)
MCHC 32.6 L g/dL
(33.0-37.0)
MPV 12.9 H fL
(7.4-10.4)
BUN 20 H mg/dl
(7-17)
Glucose 154 H mg/dl
(70-99)
POC Glucose 152 H mg/dl
(70-99)
02/12/25 13:26
02/12/25 15:26
Vital Signs
Initial and Last Documented VS:
Initial Vital Signs
Temp Pulse Resp BP Pulse Ox
36.5 C 88 20 124/53 98
02/12/25 13:19 02/12/25 13:19 02/12/25 13:19 02/12/25 13:19 02/12/25 13:19
Last Documented Vital Signs
Temp Pulse Resp BP Pulse Ox
36.5 C 91 18 122/61 96
02/12/25 13:19 02/12/25 19:45 02/12/25 20:15 02/12/25 19:00 02/12/25 19:45
<Julieta Joy PA-C - Last Filed: 02/13/25 02:28>
Orders/Labs/Results
Orders:
Orders
02/12/25 13:15
EKG [Electrocardiogram (*1)] Urgent
Reason for Study: Tachycardia
EKG- Treatment ONCE
02/12/25 13:26
Basic Metabolic Panel Urgent
Complete Blood Count/With Diff Urgent
02/12/25 14:52
Orthostatic VS- Treatment ONCE
0.9% Sodium Chloride 1000 ml [Nss] 1,000 ml IV BOLUS
02/12/25 14:54
Troponin I Urgent
02/12/25 15:17
CT Head W/o Iv Contrast Urgent
Comment:
Reason For Exam: syncope
02/12/25 15:26
Potassium Urgent
02/12/25 16:22
EKG- Treatment ONCE
02/12/25 16:36
UA Reflex to Culture [Urinalysis Reflex To Culture] Urgent
Date Specimen was Collected: 02/12/25
Time Specimen was Collected: 16:26
02/12/25 18:00
Electrocardiogram (*1) Urgent
Reason for Study: Chest Pain
02/12/25 18:06
Troponin I Urgent
Abnormal Lab Results
02/12/25 02/12/25
13:25 13:26
Hgb 10.8 L g/dL
(12.0-16.0)
Hct 33.1 L %
(37.0-47.0)
MCV 77.2 L fL
(81.0-99.0)
MCH 25.2 L pg
(27.0-31.0)
MCHC 32.6 L g/dL
(33.0-37.0)
MPV 12.9 H fL
(7.4-10.4)
BUN 20 H mg/dl
(7-17)
Glucose 154 H mg/dl
(70-99)
POC Glucose 152 H mg/dl
(70-99)
02/12/25 13:26
02/12/25 15:26
Vital Signs
Initial and Last Documented VS:
Initial Vital Signs
Temp Pulse Resp BP Pulse Ox
36.5 C 88 20 124/53 98
02/12/25 13:19 02/12/25 13:19 02/12/25 13:19 02/12/25 13:19 02/12/25 13:19
Last Documented Vital Signs
Temp Pulse Resp BP Pulse Ox
36.5 C 91 18 122/61 96
02/12/25 13:19 02/12/25 19:45 02/12/25 20:15 02/12/25 19:00 02/12/25 19:45
<LEAH Ryan - Last Filed: 02/12/25 16:43>
MDM/Problems Addressed
MDM/Problems Addressed:
74-year-old female presented with two syncope episodes. One episode was witnessed by daughter. Patient did complain of some very mild epigastric discomfort prior to that episode.
Patient presents here awake alert no acute distress she denies any dizziness chest pain or shortness of breath here. She is no epigastric discomfort at this time. She ambulated back and forth the bathroom well-appearing. She denies any recent
fever she is afebrile with a normal white count stable hemoglobin at 10.8. Her chemistries are unremarkable sugar minimally minimally elevated 154. Cardiac troponin 0.012 though no acute findings on EKG. CT head negative
Patient was evaluate by ED physician with syncope likely recommend admission however daughter would like to wait for further testing and possibly consider taking patient home.
With elevated troponin we will recommend repeat troponin and EKG. d/c with nichole who is agreeable with plan.
case transferred to [facility].
<LEAH Ryan - Last Filed: 02/12/25 16:43>
*Pulse Oximetry
SaO2: 96
Oxygen Mode of Delivery: Room air
Patient hypoxic: no
*EKG
Interpreted by ED Provider?: Yes
Heart Rate: 87
Rate: normal
Ischemia: non-specific ST changes
<Julieta Joy PA-C - Last Filed: 02/13/25 02:28>
*Critical Care Note
Total Time (30-74mins, 75-104mins- exclusive of procedures): Not Applicable
<Julieta Joy PA-C - Last Filed: 02/13/25 02:28>
Update Note
Update Note:
Assumed care of patient at 5 PM pending repeat EKG and troponin after 2 episodes of syncope today. It sounds as if patient have pain or nausea preceding her syncope which could have been a vasovagal episode however it is unclear. She does have
risk factors. Her second EKG is normal and her repeat troponin is equivocal of 0.014 from 0.012. She has not syncopized here. She has had no events on the monitor. She would strongly like to go home however I did discuss with the family that it
is unclear what caused her syncope. Both she and the daughter wanted to go home and are aware of the risk benefits of this. Return precautions given
ED Attending Note
<LEAH Ryan - Last Filed: 02/12/25 16:43>
-
Portions of this chart may have been created with voice recognition software.� Occasional wrong word or��sound alike� substitutions may have occurred due to the inherent limitations of voice recognition software.
<Shayla Ding DO - Last Filed: 02/12/25 15:47>
ED Attending Note
Patient seen and examined by attending physician: Yes
I performed the substantive portion of visit, reviewed & personally made and approve the management plan that is documented in note by myself or MISHEL.: Yes
I performed a history and physical exam of patient and discussed management with resident, I reviewed resident's note and agree with documented findings and plan of care.: Yes
ED Attending Note:
74-year-old female with prior history of diabetes, hypertension, hyperlipidemia presenting to the emergency department after syncope. Patient notes that she was walking to the bathroom and passed out. Denies prodromal symptoms. She then went to
the bathroom and while trying to have a bowel movement, had an additional syncopal episode. Denies any prodromal chest pain, dizziness, lightheadedness. Denies known cardiac issues. Denies any significant issues with syncope. Vital signs are
normal.
On exam, patient resting comfortably, currently asymptomatic. Hemodynamically stable. EKG obtained on arrival, nonischemic, no arrhythmia. Reassuring cardiac, pulmonary, neurologic exam. Concern for 2 episodes of syncope prior to arrival, 1 of
which was unprovoked. Vasovagal etiology was a consideration, however seems less likely and in the first event. Labs obtained prior to my assessment, unremarkable. Will obtain CT brain imaging, however at this time given to preceding syncopal
episodes, feel patient warrants admission for cardiac monitoring cardiac consultation
Discharge Plan
Departure
Patient Disposition: Home (Routine Discharge)
Date of Disposition: 02/12/25
Time of Disposition: 19:49
Patient with high blood pressure during this ER visit?: No
Covid-19: Not Applicable
Discharge Problem:
Syncope
Instructions: Syncope (Fainting) (DC)
Prescriptions:
No Action
sucralfate [Carafate] 1 GM tablet
1 gm PO BID
omeprazole 40 MG capsule,delayed release(DR/EC)
40 mg PO DAILY
amantadine HCl 100 MG capsule
100 mg PO DAILY
ergocalciferol (vitamin D2) 1,250 mcg (50,000 unit) Capsule
1,250 mcg PO QWEEK Qty: 0
Patient Comments:
Takes on the and 15th of the month
aspirin 81 MG tablet,delayed release (DR/EC)
81 mg PO DAILY
gabapentin 300 MG capsule
300 mg PO DAILY
levothyroxine 25 MCG capsule
25 mcg PO DAILY AT 0700
cyclobenzaprine 10 MG tablet
10 mg PO DAILY PRN (Reason: Raised Bld sugar)
Patient Comments:
Patient took weeks ago per patient.
multivitamin Tablet
1 tab PO DAILY
carvedilol 12.5 mg Tablet
12.5 mg PO BID
vitamin B complex Tablet
1 tab PO DAILY
lorazepam 1 mg Tablet
1 mg PO HS PRN (Reason: sleep)
Patient Comments:
10/16/2021: last filled 09/30/21, 90 tabs for 90 days from [facility][id number]
polyethylene glycol 3350 17 gram Powder In Packet
17 grams PO DAILY Qty: 0 0RF
cefuroxime axetil 500 mg Tablet
500 mg PO BID Qty: 3 0RF
oxycodone 5 mg Tablet
2.5 mg PO Q4HPRN PRN (Reason: severe pain) Qty: 3 0RF
insulin lispro [Humalog KwikPen Insulin] 100 UNIT/ML insulin pen
2 unit SC MEALS Qty: 0 0RF
insulin glargine [Lantus Solostar U-100 Insulin] 100 unit/mL (3 mL) Insulin Pen
25 unit SC DAILY Qty: 0 0RF
Referrals:
Bel Nielson MD [Family Provider, Internal Medicine]
Activity Restrictions/Additional Instructions:
YOU PASSED OUT
YOU SHOULD CALL YOUR DOCTOR AND [employer] [facility]IS[facility] FOR FOLLOW UP
PLEASE RETURN FOR REPEATED PASSING OUT EPISODES, RECTAL BLEEDING, FEVER, CHEST PAIN,E TC
STAY HYDRATED
IF OU FEEL LIGHTHEADED, LOWER YOURSELF TO THE GROUND HOPEFULLY TO AVOID PASSING OUT.
Interventions
Interventions:
*General Assessment Last Done: 02/12/25 13:16
*Neglect/Abuse Screening Last Done: 02/12/25 13:16
*ED COVID-19 Vaccine History Last Done: 02/12/25 13:16
*ED Influenza Vaccine History Last Done: 02/12/25 13:16
[facility] Fall Risk Assessment Tool Last Done: 02/12/25 13:18
*Risk Screen - Suicide (C-SSRS) Last Done: 02/12/25 13:16
*Nursing Disposition Last Done: 02/12/25 20:15
ED- Cardiac Assessment Last Done: 02/12/25 13:38
ED- Neurological Assessment Last Done: 02/12/25 13:38
Discharge Date and Time
Discharge Date/Time: 02/12/25 20:16
Print Language: [id number]
[2025-02-12] MEDS: NSS 1000 IV (14:56)
[2025-02-12 15:30] LABS: Troponin I 0.012 ng/ml
[2025-02-12 15:49] LABS: Potassium 4.2 mmol/L (3.5-5.1)
[2025-02-12 16:49] LABS: Urine Character Clear (Clear)
[2025-02-12 18:49] LABS: Troponin I 0.014 ng/ml
== END 2025-02-12 20:16 | disposition home or self-care (01) ==
LOC: EMR 13:09
PROVIDERS: Nurse Practitioner; EMERGENCY PHYSICIAN Student in an Organized Health Care Education/Training Program; FAMILY PHYSICIAN Internal Medicine
DX: R55 Syncope and collapse (principal); E10.9 Type 1 diabetes mellitus without complications; I10 Essential (primary) hypertension; E78.00 Pure hypercholesterolemia, unspecified; D3A.8 Other benign neuroendocrine tumors; K21.9 Gastro-esophageal reflux disease without esophagitis; Z79.4 Long term (current) use of insulin; Z79.82 Long term (current) use of aspirin
CPT/HCPCS: 99284; 96360; 70450; 80048; 81003; 82962; 84132; 84484; 85025; 93005